=== PATIENT | female | born 1985 | race Caucasian/White ===

== ENCOUNTER 2019-11-12 17:00 | Observation (INO) | payer SELFPAY ==
[2019-11-12] MEDS ORDERED: PREN-129 OR (17:31)
[2019-11-12] MEDS ORDERED: GLYB2.5T8 PO (17:31)
== END 2019-11-12 19:26 | disposition home or self-care (01) ==
LOC: LDRP 17:00
PROVIDERS: ADMIT Specialist; ATTEND Specialist
DX: O36.8130 Decreased fetal movements, third trimester, not applicable or unspecified (principal); O24.419 Gestational diabetes mellitus in pregnancy, unspecified control; Z3A.28 28 weeks gestation of pregnancy
CPT/HCPCS: 59025; 76818; 81002; 82948; 82962; G0378

== ENCOUNTER 2019-11-20 08:35 | Observation (INO) | payer MEDICAID ==
[~2019-11-20 08:35] MED LIST: GLYB2.5T8 PO; PREN-129 OR
== END 2019-11-20 09:40 | disposition home or self-care (01) ==
LOC: LDRP 08:35
PROVIDERS: ADMIT Specialist; ATTEND Specialist
DX: O24.415 Gestational diabetes mellitus in pregnancy, controlled by oral hypoglycemic drugs (principal); Z3A.29 29 weeks gestation of pregnancy
CPT/HCPCS: 59025; 76818; 81002; 82948; 82962; G0378

== ENCOUNTER 2019-11-23 14:02 | Observation (INO) | payer BC, MEDICAID | END 2019-11-23 15:30 | disposition home or self-care (01) | LOC: LDRP 14:02 | PROVIDERS: ADMIT Specialist; ATTEND Specialist | DX: O24.415 Gestational diabetes mellitus in pregnancy, controlled by oral hypoglycemic drugs (principal); Z3A.30 30 weeks gestation of pregnancy | CPT/HCPCS: 59025; 76818; 81002; 82962; G0378 ==

== ENCOUNTER 2019-11-28 08:26 | Observation (INO) | payer BC, MEDICAID | END 2019-11-28 10:30 | disposition home or self-care (01) | LOC: LDRP 08:26 | PROVIDERS: ADMIT Obstetrics & Gynecology; ATTEND Obstetrics & Gynecology | DX: O24.414 Gestational diabetes mellitus in pregnancy, insulin controlled (principal); O40.3XX0 Polyhydramnios, third trimester, not applicable or unspecified; Z3A.30 30 weeks gestation of pregnancy | CPT/HCPCS: 59025; 76818; 81002; 82948; 82962; G0378 ==

== ENCOUNTER 2019-12-01 09:13 | Observation (INO) | payer BC, MEDICAID | END 2019-12-01 10:25 | disposition home or self-care (01) | LOC: LDRP 09:13 | PROVIDERS: ADMIT Obstetrics & Gynecology; ATTEND Obstetrics & Gynecology | DX: O24.415 Gestational diabetes mellitus in pregnancy, controlled by oral hypoglycemic drugs (principal); O40.3XX0 Polyhydramnios, third trimester, not applicable or unspecified; Z3A.31 31 weeks gestation of pregnancy | CPT/HCPCS: 59025; 76818; 81002; 82948; 82962; G0378 ==

== ENCOUNTER 2019-12-05 08:15 | Observation (INO) | payer BC, MEDICAID | END 2019-12-05 09:20 | disposition home or self-care (01) | LOC: LDRP 08:15 | PROVIDERS: ADMIT Obstetrics & Gynecology; ATTEND Obstetrics & Gynecology | DX: O24.419 Gestational diabetes mellitus in pregnancy, unspecified control (principal); O40.3XX0 Polyhydramnios, third trimester, not applicable or unspecified; Z3A.31 31 weeks gestation of pregnancy | CPT/HCPCS: 59025; 76818; 81002; 82948; 82962; G0378 ==

== ENCOUNTER 2019-12-08 14:00 | Observation (INO) | payer BC, MEDICAID | END 2019-12-08 16:39 | disposition home or self-care (01) | LOC: LDRP 14:00 | PROVIDERS: ADMIT Obstetrics & Gynecology; ATTEND Obstetrics & Gynecology | DX: O40.3XX0 Polyhydramnios, third trimester, not applicable or unspecified (principal); O24.419 Gestational diabetes mellitus in pregnancy, unspecified control; Z3A.32 32 weeks gestation of pregnancy | CPT/HCPCS: 59025; 76818; 81002; G0378 ==

== ENCOUNTER 2019-12-09 00:24 | Observation (INO) | payer BC, MEDICAID ==
[~2019-12-09] VITALS: Ht 167.6 cm; Wt 126.6 kg
[2019-12-09 01:48] LABS: Urine Bacteria FEW /hpf (None Seen); Urine Blood Negative /uL (Negative); Urine Specific Gravity 1.016 (1.001-1.035); Urine WBC 1 /hpf (0 - 5)
[2019-12-09 02:00] LABS: Alcohol, Urine < 3.0 mg/dL (0-10); Amphetamine Screen, Urine NEGATIVE (NEGATIVE); Barbiturate Scree,Urine NEGATIVE (NEGATIVE); Benzodiazephine Screen, Urine NEGATIVE (NEGATIVE); Cannabinoid Screen, Urine NEGATIVE (NEGATIVE); Cocaine Screen, Urine NEGATIVE (NEGATIVE); Opiate Scree,Urine NEGATIVE (NEGATIVE); Phencyclidine Screen, Urine NEGATIVE (NEGATIVE)
[2019-12-09 02:50] LABS: Basophils # (auto) 0 10 ^3/uL (0-0.2); Basophils % (auto) 0.1 % (0.0-2.0); Eosinophils # (auto) 0.1 10 ^3/uL (0-0.8); Eosinophils % (auto) 0.5 % (0.0-7.0); Hematocrit 37.2 % (36.0-46.0); Hemoglobin 12.6 g/dL (12.2-16.2); Lymphocytes # (auto) 3.5 10 ^3/uL (0.4-5.4); Mean Corpuscular Hemoglobin 30.3 pg (28.0-32.0); Mean Corpuscular Hgb Conc. 33.8 g/dL (32.0-36.0); Mean Corpuscular Volume 89.6 fL (80.0-100.0); Monocytes # (auto) 0.7 10 ^3/uL (0-1.3); Monocytes % (auto) 6.3 % (0.0-12.0); Neutrophils % (auto) 62.1 % (37.0-80.0); Platelet Count (auto) 194 10^3/uL (140-450); Red Blood Cells 4.15 10^6/uL (4.0-5.20); Red Cell Distribution Width 15.8 % (11.8-14.3); White Blood Cell 11.2 10^3/uL (4.4-10.8)
== END 2019-12-09 03:27 | disposition home or self-care (01) ==
LOC: LDRP 00:24 → UNDODISOB 03:17
PROVIDERS: ADMIT Obstetrics & Gynecology; ATTEND Obstetrics & Gynecology
DX: O26.893 Other specified pregnancy related conditions, third trimester (principal); R10.31 Right lower quadrant pain; M54.9 Dorsalgia, unspecified; O24.419 Gestational diabetes mellitus in pregnancy, unspecified control; O40.3XX0 Polyhydramnios, third trimester, not applicable or unspecified; Z87.442 Personal history of urinary calculi; Z87.19 Personal history of other diseases of the digestive system; Z3A.32 32 weeks gestation of pregnancy
CPT/HCPCS: 36415; 59025; 76705; 76775; 80307; 81001; 81002; 82962; 85025; G0378

== ENCOUNTER 2019-12-11 14:12 | Observation (INO) | payer BC, MEDICAID | END 2019-12-11 15:30 | disposition home or self-care (01) | LOC: LDRP 14:12 | PROVIDERS: ADMIT Obstetrics & Gynecology; ATTEND Obstetrics & Gynecology | DX: O24.419 Gestational diabetes mellitus in pregnancy, unspecified control (principal); Z3A.32 32 weeks gestation of pregnancy | CPT/HCPCS: 59025; 76818; 81002; 82962; G0378 ==

== ENCOUNTER 2019-12-15 13:58 | Observation (INO) | payer BC, MEDICAID | END 2019-12-15 15:50 | disposition home or self-care (01) | LOC: LDRP 13:58 | PROVIDERS: ADMIT Specialist; ATTEND Specialist | DX: O24.419 Gestational diabetes mellitus in pregnancy, unspecified control (principal); O40.3XX0 Polyhydramnios, third trimester, not applicable or unspecified; Z3A.33 33 weeks gestation of pregnancy | CPT/HCPCS: 59025; 76818; 81002; 82948; 82962; G0378 ==

== ENCOUNTER 2019-12-18 12:55 | Observation (INO) | payer BC, MEDICAID ==
[~2019-12-18] VITALS: Ht 33 cm; Wt 0.5 kg
[~2019-12-18 12:55] MED LIST changes: -PREN-129 OR; +PREN-129 PO
[2019-12-18] MEDS ORDERED: ACETAMINOPHEN/CODEINE#3 (300/30mg) TAB PO PRN (15:45)
[2019-12-18] MEDS ORDERED: LACTATED RINGER'S 1,000 ML IV SCH (15:45)
[2019-12-18] MEDS: ACETAMINOPHEN/CODEINE#3 (300/30mg) TAB PO PRN ×2 (16:20→21:17)
[2019-12-18] MEDS ORDERED: NIFEdipine 10 MG CAP PO ONE (17:00)
[2019-12-18] MEDS ORDERED: MEPERIDINE HCL (50 MG/ML) 1 ML VIAL IM PRN (17:45)
[2019-12-18] MEDS ORDERED: glyBURIDE 5 MG TAB PO SCH ×2 (18:00)
[2019-12-18] MEDS ORDERED: NIFEdipine 10 MG CAP PO SCH ×2 (18:00→21:00)
[2019-12-18 21:39] LABS: Urine Bacteria FEW /hpf (None Seen); Urine Blood Negative /uL (Negative); Urine Specific Gravity 1.005 (1.001-1.035); Urine WBC 6 /hpf (0 - 5)
== END 2019-12-18 22:51 | disposition home or self-care (01) ==
LOC: LDRP 12:55
PROVIDERS: ADMIT Specialist; ATTEND Specialist
DX: O99.89 Other specified diseases and conditions complicating pregnancy, childbirth and the puerperium (principal); M54.5 Low back pain; Z3A.33 33 weeks gestation of pregnancy
CPT/HCPCS: 59025; 76775; 76818; 81001; 81002; 82948; 82962; 96360; 96361; G0378; 96366

== ENCOUNTER 2019-12-22 13:10 | Observation (INO) | payer BC, MEDICAID ==
[2019-12-22] MEDS ORDERED: CEPH250C PO (13:44)
== END 2019-12-22 14:06 | disposition home or self-care (01) ==
LOC: LDRP 13:10
PROVIDERS: ADMIT Obstetrics & Gynecology; ATTEND Obstetrics & Gynecology
DX: O24.419 Gestational diabetes mellitus in pregnancy, unspecified control (principal); O40.3XX0 Polyhydramnios, third trimester, not applicable or unspecified; Z3A.34 34 weeks gestation of pregnancy
CPT/HCPCS: 59025; 76818; 81002; 82948; 82962; G0378

== ENCOUNTER 2019-12-26 14:03 | Observation (INO) | payer BC, MEDICAID ==
[~2019-12-26 14:03] MED LIST changes: +CEPH250C PO
== END 2019-12-26 15:17 | disposition home or self-care (01) ==
LOC: LDRP 14:03
PROVIDERS: ADMIT Obstetrics & Gynecology; ATTEND Obstetrics & Gynecology
DX: O40.3XX0 Polyhydramnios, third trimester, not applicable or unspecified (principal); O24.415 Gestational diabetes mellitus in pregnancy, controlled by oral hypoglycemic drugs; O60.03 Preterm labor without delivery, third trimester; Z3A.34 34 weeks gestation of pregnancy
CPT/HCPCS: 59025; 76818; 81002; 82948; 82962; G0378

== ENCOUNTER 2019-12-29 14:17 | Observation (INO) | payer BC, MEDICAID | END 2019-12-29 16:02 | disposition home or self-care (01) | LOC: LDRP 14:17 | PROVIDERS: ADMIT Specialist; ATTEND Specialist | DX: O24.419 Gestational diabetes mellitus in pregnancy, unspecified control (principal); Z3A.35 35 weeks gestation of pregnancy | CPT/HCPCS: 59025; 76818; 81002; 82962; G0378 ==

== ENCOUNTER 2020-01-02 13:59 | Observation (INO) | payer BC, MEDICAID ==
[~2020-01-02 13:59] MED LIST changes: -CEPH250C PO
== END 2020-01-02 15:47 | disposition home or self-care (01) ==
LOC: LDRP 13:59
PROVIDERS: ADMIT Specialist; ATTEND Specialist
DX: O24.419 Gestational diabetes mellitus in pregnancy, unspecified control (principal); O62.9 Abnormality of forces of labor, unspecified; Z3A.35 35 weeks gestation of pregnancy
CPT/HCPCS: 59025; 76818; 81002; 82948; 82962; G0378

== ENCOUNTER 2020-01-04 10:55 | Inpatient (IN) | payer BC, MEDICAID ==
[~2020-01-04] VITALS: Ht 167.6 cm; Wt 129.7 kg
[2020-01-04] MEDS ORDERED: DERMOPLAST 60ML BOTTLE TOP PRN (12:30)
[2020-01-04] MEDS ORDERED: LIDOCAINE 2%HCL (LOCAL ANESTH.) INJ 20ML MDV ID ONE (12:30)
[2020-01-04] MEDS ORDERED: LACTATED RINGER'S 1,000 ML IV SCH (12:30)
[2020-01-04] MEDS ORDERED: PHISODERM TOP SOLN 240ML BTL TOP PRN (12:30)
[2020-01-04] MEDS ORDERED: WITCH HAZEL-GLYCERIN PAD TOP PRN (12:30)
[2020-01-04] MEDS ORDERED: LACT. RINGERS/OXYTOCIN 20UNITS 1,000 ML IV SCH ×2 (12:30→17:45)
[2020-01-04 13:33] LABS: Basophils # (auto) 0 10 ^3/uL (0-0.2); Basophils % (auto) 0.1 % (0.0-2.0); Eosinophils # (auto) 0.1 10 ^3/uL (0-0.8); Eosinophils % (auto) 1.1 % (0.0-7.0); Hematocrit 39.1 % (36.0-46.0); Hemoglobin 13.3 g/dL (12.2-16.2); Lymphocytes # (auto) 2.4 10 ^3/uL (0.4-5.4); Lymphocytes % (auto) 26.7 % (10.0-50.0); Mean Corpuscular Hemoglobin 30.7 pg (28.0-32.0); Mean Corpuscular Hgb Conc. 34.1 g/dL (32.0-36.0); Monocytes # (auto) 0.3 10 ^3/uL (0-1.3); Monocytes % (auto) 3.3 % (0.0-12.0); Neutrophils # (auto) 6.3 10 ^3/uL (1.6-8.6); Neutrophils % (auto) 68.8 % (37.0-80.0); Nucleated Red Blood Cells % 0.1 %; Platelet Count (auto) 195 10^3/uL (140-450); Red Blood Cells 4.34 10^6/uL (4.0-5.20); Red Cell Distribution Width 16.6 % (11.8-14.3); White Blood Cell 9.1 10^3/uL (4.4-10.8)
[2020-01-04 13:38] LABS: Albumin 2.4 g/dL (3.4-5.0); Calcium 9.1 mg/dL (8.5-10.1)
[2020-01-04 13:39] LABS: INR 0.93 (0.9-1.15); Partial Thromboplastin Time 27.3 sec (23.0-31.2)
[2020-01-04 13:42] LABS: BUN/Creatinine Ratio 11.8; Bilirubin, Total 0.4 mg/dL (0.2-1.0); Total Protein 6.5 g/dL (6.4-8.2)
[2020-01-04 13:42] LABS: Urine Bacteria FEW /hpf (None Seen); Urine Blood 2+ /uL (Negative); Urine Specific Gravity 1.011 (1.001-1.035)
[2020-01-04 13:43] LABS: Urine WBC 2 /hpf (0 - 5)
[2020-01-04 13:44] LABS: Alcohol, Urine < 3.0 mg/dL (0-10); Amphetamine Screen, Urine NEGATIVE (NEGATIVE); Barbiturate Scree,Urine NEGATIVE (NEGATIVE); Benzodiazephine Screen, Urine NEGATIVE (NEGATIVE); Cannabinoid Screen, Urine NEGATIVE (NEGATIVE); Cocaine Screen, Urine NEGATIVE (NEGATIVE); Opiate Scree,Urine NEGATIVE (NEGATIVE); Phencyclidine Screen, Urine NEGATIVE (NEGATIVE)
[2020-01-04] MEDS ORDERED: ceFAZolin 1GM/50ML 50 ML IV SCH (14:00)
[2020-01-04] MEDS ORDERED: BUTORPHANOL TARTRATE 2 MG/1 ML VIAL IV PRN (14:00)
[2020-01-04] MEDS ORDERED: NALOXONE HCL 0.4 MG/ML VIAL IV ONE (14:30)
[2020-01-04] MEDS ORDERED: ePHEDrine SULFATE 50 MG/ML AMP IV ONE (14:30)
[2020-01-04] MEDS ORDERED: fentaNYL CITRATE 100 MCG/2 ML VL IV ONE (14:30)
[2020-01-04] MEDS ORDERED: D5W/LACTATED RINGERS 1,000 ML IV SCH (14:30)
[2020-01-04] MEDS ORDERED: LIDOCAINE HCL 2 %PF INJ 10ML AMP IJ ONE (14:30)
[2020-01-04] MEDS ORDERED: ROPIVACAINE HCL 100 ML EPI SCH (14:30)
[2020-01-04] MEDS ORDERED: IBUPROFEN 600 MG TAB PO PRN (15:30)
[2020-01-04] MEDS ORDERED: LACT. RINGERS/OXYTOCIN 20UNITS 1,000 ML IV ONE (16:45)
[2020-01-04] MEDS: IBUPROFEN 600 MG TAB PO PRN (17:03)
--- NOTE | 2020-01-04 17:06 | NUR ---
Ambulation: Patient OOB with standby assistance by RN. Patient ambulated to bathroom with steady gait. Patient able to void 500ml without difficulty. Pericare teaching provided with returned demonstration by patient. Dermoplast, tucks and clean peripad applied. Clean gown provided and bed linen changed. Patient ambulated back to bed with steady gait and no distress noted.
[2020-01-04 18:30] VITALS: BP 136/63
[2020-01-04] MEDS: ACETAMINOPHEN 325 MG TAB PO PRN (20:31)
[2020-01-04 23:00] VITALS: BP 109/60
[2020-01-05] MEDS: IBUPROFEN 600 MG TAB PO PRN ×3 (01:42→19:58)
[2020-01-05 03:00] VITALS: BP 114/57
[2020-01-05] MEDS: ACETAMINOPHEN 325 MG TAB PO PRN ×3 (05:29→22:56)
[2020-01-05 06:06] LABS: RPR Non Reactive (Non Reactive)
[2020-01-05 06:30] VITALS: BP 105/60
[2020-01-05 08:06] LABS: Rubella Antibodies, IgG 1.62 index (Immune >0.99)
[2020-01-05 11:00] VITALS: BP 107/64
[2020-01-05 15:00] VITALS: BP 109/63
--- NOTE | 2020-01-05 18:45 | NUR ---
CALLED DR. ARCOS TO GET DISCHARGE ORDER FOR PT, FULL SBAR GIVEN. MD WISHES TO NOT DISCHARGE PT AT THIS TIME AND WOULD LIKE TO SEE HER TOMORROW AM. NOTIFIED PT. PT AND SPOUSE VERBALIZED UNDERSTANDING.
[2020-01-05 19:00] VITALS: BP 106/59
[2020-01-05 22:58] VITALS: BP 113/69
[2020-01-06] MEDS: IBUPROFEN 600 MG TAB PO PRN ×2 (00:47→05:30)
[2020-01-06 03:00] VITALS: BP 114/57
[2020-01-06 07:20] VITALS: BP 115/52
--- NOTE | 2020-01-06 10:33 | NUR ---
Discharge: Discharge instructions given as ordered. Pt encouraged to follow up with [facility] as instructed. All questions and concerns addressed. Patient verbalized understanding. Medication reconciliation completed and copy given to patient. . Patient encouraged to prepare to depart unit.
--- NOTE | 2020-01-06 10:50 | NUR ---
Discharge: Patient taken to vehicle via wheelchair with all personal belongings, accompanied by staff and family member. No distress noted at time of departure, no adverse changes in status since initial assessment. Addendum: 01/06/20 at 1121 by Markus Oneal RN TIME AT 1100 Addendum: 01/06/20 at 1121 by Markus Oneal RN TIME AT 1110
[2020-01-06 11:00] VITALS: BP 125/69
== END 2020-01-06 11:10 | disposition home or self-care (01) | DRG 807 ==
LOC: LDRP 10:55 → OBSVTOIN 12:19 → LDRP 01-05 10:20
PROVIDERS: ADMIT Specialist; ATTEND Specialist
PROC: 10E0XZZ Delivery of Products of Conception, External Approach (ICD-10-PCS; principal; 2020-01-04)
DX: O60.14X0 Preterm labor third trimester with preterm delivery third trimester, not applicable or unspecified (principal); Z37.0 Single live birth; O24.429 Gestational diabetes mellitus in childbirth, unspecified control; O62.3 Precipitate labor; O42.913 Preterm premature rupture of membranes, unspecified as to length of time between rupture and onset of labor, third trimester; Z20.828 Contact with and (suspected) exposure to other viral communicable diseases; O99.214 Obesity complicating childbirth; E66.9 Obesity, unspecified; Z3A.36 36 weeks gestation of pregnancy
CPT/HCPCS: 36415; 59025; 59409; 76805; 80053; 80307; 81001; 81002; 84112; 84550; 85025; 85610; 85730; 86592; 86762; 86850; 86900; 86901; 87340; 96360; 96361; 96365; 96366; G0378; J0690; J2590